=== PATIENT | male | born 1950 | race Caucasian/White ===

== ENCOUNTER → 2024-01-23 | Outpatient (CLI) | payer OTHER | END | disposition home or self-care (01) | LOC: RAD 14:24 | DX: Z00.00 Encounter for general adult medical examination without abnormal findings (principal); M47.814 Spondylosis without myelopathy or radiculopathy, thoracic region; M51.37 Other intervertebral disc degeneration, lumbosacral region; M47.817 Spondylosis without myelopathy or radiculopathy, lumbosacral region | CPT/HCPCS: 72072; 72100 ==